=== PATIENT | female | born 1970 | race Caucasian/White ===

== ENCOUNTER 2018-09-20 14:34 | Outpatient (CLI) | payer BC | END 2018-09-20 14:35 | disposition home or self-care (01) | LOC: BICMAMMO 14:34 | PROVIDERS: ATTEND Student in an Organized Health Care Education/Training Program | DX: Z12.31 Encounter for screening mammogram for malignant neoplasm of breast (principal) | CPT/HCPCS: 77063; 77067 ==

== ENCOUNTER 2018-11-06 00:35 | Emergency (ER) | payer BC ==
[2018-11-06] MEDS ORDERED: HYDROcodone/Acetaminophen 5/325 mg Tablet ONE (01:25)
--- NOTE | 2018-11-06 08:01 | RAD ---
FOUR VIEWS LEFT ELBOW: DATE: 11/06/2018. HISTORY: Injury to left elbow. Injured left elbow after a fall. Pain and swelling. FINDINGS: No acute fracture or dislocation is seen. There is a small osseous density seen adjacent to the vamshi noid process of the ulna which appears corticated and is not thought to represent an acute fracture. There are no findings to suggest a joint effusion. IMPRESSION: No acute osseous abnormality. POS: ABRAM
--- NOTE | 2018-11-06 08:25 | RAD ---
THREE VIEWS LUMBAR SPINE: DATE: 11/06/2018. HISTORY: Low back pain after a fall. FINDINGS: There are 5 [id number] lumbar-type vertebral bodies. The vertebral body heights are within norm al limits. No fracture or subluxation is seen. Scattered osteophytes are seen anteriorly involving the lumbar spine. There is mild narrowing of the intervertebral disk spaces at the L4-5 level and to a greater degree at the L5-S1 level. Vascular calcifications are seen in the abdominal aorta and iliac arteries. Surgical clips overlie t he right upper quadrant. IMPRESSION: Mild degenerative changes of the lumbar spine without evidence of a fracture or subluxation. POS: ABRAM
--- NOTE | 2018-11-06 08:26 | RAD ---
TWO VIEWS LEFT HUMERUS: DATE: 11/06/2018. HISTORY: Left arm pain after a fall. 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 Coracoclavicular and acromioclavicular dis tances do appear to be within normal limits on this exam. There is no fracture or dislocation seen i nvolving the left humerus. No other findings. IMPRESSION: No acute fracture visualized. POS: ABRAM
== END 2018-11-06 02:25 | disposition home or self-care (01) ==
LOC: ERS 00:35
DX: S50.12XA Contusion of left forearm, initial encounter (principal); S50.02XA Contusion of left elbow, initial encounter; M54.5 Low back pain; W18.30XA Fall on same level, unspecified, initial encounter; Y93.02 Activity, running; Y92.411 Interstate highway as the place of occurrence of the external cause
CPT/HCPCS: 72100

== ENCOUNTER 2022-04-20 23:21 | Emergency (ER) | payer OTHER, BC ==
[2022-04-21] MEDS ORDERED: Ketorolac Tromethamine 30 MG/ML VIAL ONE (00:44)
== END 2022-04-21 00:59 | disposition home or self-care (01) ==
LOC: ERS 23:21
DX: S09.90XA Unspecified injury of head, initial encounter (principal); W18.2XXA Fall in (into) shower or empty bathtub, initial encounter; Y93.E1 Activity, personal bathing and showering; F17.210 Nicotine dependence, cigarettes, uncomplicated
CPT/HCPCS: 70450; 72125; 93005; 96372; J1885